=== PATIENT | female | born 1950 | race Caucasian/White ===

== ENCOUNTER 2020-12-10 15:00 | Emergency (ER) | payer OTHER ==
[~2020-12-10 15:00] MED LIST: CIPRO500 M1 PO; FLAGYL500 MG PO; NORCO 5-325 TA1 EACH PO; ZOFRAN8 MG PO
[2020-12-10 19:48] LABS: BASOPHIL 0.2 % (0-2); EOSINOPHIL 1.5 % (0-7); HGB 11.5 g/dl (12.5-16.0); LYMPHOCYTE 17.4 % (15-48); MCH 28.3 pg (25.0-31.0); MCHC 31.1 g/dL (32.0-36.0); MCV 91.1 fL (78.0-100.0); MONOCYTE 8.5 % (0-12); MPV 9.6 fL (6.0-9.5); NEUTROPHIL 72.2 % (41-80); NRBC 0; PLT 150 K/uL (150-400); RBC 4.06 M/uL (4.20-5.40); RDW 15.3 % (11.5-14.0); WBC 5.3 K/uL (4.0-10.5)
[2020-12-10 19:57] LABS: BILIRUBIN NEGATIVE (NEGATIVE); BLOOD NEGATIVE Ery/uL (NEGATIVE); CLARITY CLEAR (CLEAR); COLOR YELLOW (YELLOW); GLUCOSE (U) NORMAL (NORMAL); LEUKOCYTES NEGATIVE Leu/uL (NEGATIVE); NITRITE NEGATIVE (NEGATIVE); PROTEIN NEGATIVE (NEGATIVE); SPECIFIC GRAVITY 1.025 (1.001-1.030); UROBILINOGEN 0.2 mg/dL (0.2-1.0)
[2020-12-10 20:10] LABS: ALBUMIN 3.6 g/dL (3.4-5.0); ALKALINE PHOSHATASE 67 U/L (46-116); ALT 35 U/L (14-59); AST 29 U/L (15-37); BILIRUBIN - TOTAL 0.6 mg/dL (0.2-1.0); BUN 17 mg/dL (7-18); BUN/CREAT RATIO (CALC) 23.6 RATIO; CHLORIDE 101 mmol/L (98-107); CO2 (BICARBONATE) 33 mmol/L (21-32); CREATININE 0.72 mg/dL (0.51-0.95); GLOBULIN (CALCULATION) 3.3 g/dL; GLUCOSE 97 mg/dL (74-106); TOTAL PROTEIN 6.9 g/dL (6.4-8.2)
[2020-12-10 20:18] LABS: C-REACTIVE PROTEIN < 0.20 mg/dL (<=0.90)
[2020-12-10] MEDS ORDERED: CEPHALEXIN500 M1 PO (20:48)
== END 2020-12-10 21:10 | disposition home or self-care (01) ==
LOC: FER 15:00
PROVIDERS: Emergency Medicine Emergency Medical Services
DX: L03.115 Cellulitis of right lower limb (principal); I10 Essential (primary) hypertension; I48.91 Unspecified atrial fibrillation; Z79.01 Long term (current) use of anticoagulants; Z95.0 Presence of cardiac pacemaker; Z88.8 Allergy status to other drugs, medicaments and biological substances; Z91.030 Bee allergy status
CPT/HCPCS: 36415; 80053; 81003; 85025; 85379; 86140; 87088; J0696